=== PATIENT | female | born 1950 | race Caucasian/White ===

== ENCOUNTER 2016-08-31 23:25 | Emergency (ER) | payer BC ==
[2016-08-31 23:40] VITALS: BP 148/78
[2016-09-01] MEDS ORDERED: methylPREDNISolone Acetate 80 MG/ML SDV IARTIC ONE (00:12)
--- NOTE | 2016-09-01 00:32 | EDM.PDOC ---
ED HPI GENERAL MEDICAL PROBLEM - General Chief Complaint: Lower Extremity Injury/Pain Stated Complaint: PAIN AFTER KNEE INJECTION Time Seen by Provider: 08/31/16 23:50 Source of Information: Reports: Patient History Limitations: Reports: No Limitations - History of Present Illness INITIAL COMMENTS - FREE TEXT/NARRATIVE: 65 yo female had a Synvisc injection into her R knee earlier today. Has had this product without issue in the past. Now her R knee is swollen and tender. Has crutches at home. Onset: Today Onset Date: 08/31/16 Duration: Hour(s): Location: Reports: Lower Extremity, Right Quality: Reports: Pressure, Throbbing Severity: Moderate Improves with: Reports: Rest Worsens with: Reports: Movement Context: Reports: Other (Synvisc injection earlier in the day. 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, NSAIDS Right Posterior Knee Pain Score (Numeric/FACES): 10 - Related Data Allergies Allergy/AdvReac Type Severity Reaction Status Date / Time No Known Allergies Allergy Verified 09/01/16 00:12 Home Meds: Home Meds Acetaminophen/HYDROcodone [[place] 325-5 MG] 1 - 2 tab PO Q4H PRN #20 tab [Rx] Ondansetron [Zofran ODT] 4 mg PO Q6H PRN #7 tab.dis 09/01/16 [Rx] Review of Systems - Review of Systems Review Of Systems: See Below Constitutional: Reports: No Symptoms Musculoskeletal: Reports: Joint Pain (R knee), Joint Swelling Trauma Exam - Physical Exam Exam: See Below Exam Limited By: No Limitations General Appearance: Reports: Alert, WD/WN, No Apparent Distress Head: Reports: Atraumatic, Normocephalic Extremities: Joint Effusion ( R knee swollen. Warmer to touch than the opposite knee. Not red. ), Pain with Movement Neurologic: Reports: No Motor/Sensory Deficits, Alert, Normal Mood/Affect, Oriented x 3 Skin: Reports: Normal Color, Warm/Dry Course - Vital Signs Text/Narrative:: Prep'd the R knee with betadine x 3, wiped the area with alcohol. Anesth the skin with 2 ml of 1% lidocaine. Attempted to aspirate fluid unsuccessfully from the knee. Did inject 80 mg of depomedrol into the R knee. Last Recorded V/S: Last Vital Signs Temp 36.5 C 08/31/16 23:35 Pulse 72 08/31/16 23:35 Resp 18 08/31/16 23:35 BP 148/78 H 08/31/16 23:35 Pulse Ox 100 08/31/16 23:35 - Orders/Labs/Meds Meds: Medications Discontinued Medications Generic Name Dose Route Start Last Admin Trade Name Freq PRN Reason Stop Dose Admin Lidocaine HCl 5 ml 09/01/16 00:13 Xylocaine-Mpf 1% INJECT 09/01/16 00:14 ONETIME ONE Methylprednisolone Acetate 80 mg 09/01/16 00:12 Depo-Medrol IARTIC 09/01/16 00:13 ONETIME ONE Departure - Departure Time of Disposition: 00:43 Disposition: Home, Self-Care 01 Condition: good Clinical Impression: Allergic reaction caused by a drug Qualifiers: Encounter type: initial encounter Qualified Code(s): T78.40XA - Allergy, unspecified, initial encounter - Discharge Information Prescriptions: Acetaminophen/HYDROcodone [[place] 325-5 MG] 1 - 2 tab PO Q4H PRN #20 tab PRN Reason: Pain Ondansetron [Zofran ODT] 4 mg PO Q6H PRN #7 tab.dis PRN Reason: Nausea Referrals: PCP,None [Primary Care Provider] - Forms: ED Department Discharge Care Plan Goals: Crutch walking. Ibuprofen 400-600 mg every 6 hrs with food as needed for pain relief. Add [place] for additional relief as needed. Use Zofran for nausea as needed. Recheck with your provider next week. Consider Orthovisc or Euflexxa instead of Synvisc next time you need an injection.
[2016-09-01] MEDS ORDERED: Acetaminophen/HYDROcodone 325-5 MG Tab PO ONE (00:35)
[2016-09-01] MEDS ORDERED: Ondansetron 4 MG Tab.DIS PO ONE (00:35)
== END 2016-09-01 00:50 | disposition home or self-care (01) ==
LOC: FB.ED 23:25
DX: T78.40XA Allergy, unspecified, initial encounter (principal); Z79.899 Other long term (current) drug therapy
CPT/HCPCS: 99282; J1040; A9270-GY

== ENCOUNTER 2020-02-26 15:02 | Emergency (ER) | payer BC ==
[2020-02-26 15:17] VITALS: BP 158/85; PULSE 77
[2020-02-26] MEDS ORDERED: predniSONE 20 MG Tab ONE (15:35)
--- NOTE | 2020-02-26 15:36 | EDM.PDOC ---
ED HPI GENERAL MEDICAL PROBLEM - General Chief Complaint: Eye Problems Stated Complaint: RIGHT EYE RED Time Seen by Provider: 02/26/20 15:10 Source of Information: Reports: Patient History Limitations: Reports: No Limitations - History of Present Illness Onset: Gradual Onset Date: 02/25/20 Duration: Day(s): (2) Location: Reports: Face Quality: Reports: Ache, Burning Improves with: Reports: Cold Therapy Worsens with: Reports: Movement Context: Reports: Trauma right eye Pain Score (Numeric/FACES): 5 - Related Data Allergies Allergy/AdvReac Type Severity Reaction Status Date / Time No Known Allergies Allergy Verified 09/01/16 00:12 Home Meds: Home Meds Acetaminophen/HYDROcodone [[place] 325-5 MG] 1 - 2 tab PO Q4H PRN #20 tab 09/01/16 [Rx] Ondansetron [Zofran ODT] 4 mg PO Q6H PRN #7 tab.dis 09/01/16 [Rx] Ciprofloxacin [Ciloxan 0.3% Ophth Soln] 1 drop EYELF Q4H #1 bottle 02/26/20 [Rx] Ketorolac [Acular 0.5% Ophth Soln] 1 drop OP TID #1 bottle 02/26/20 [Rx] Past Medical History Musculoskeletal History: Reports: Other (See Below) Other Musculoskeletal History: bone spur in right knee - Past Surgical History Musculoskeletal Surgical History: Reports: None Social & Family History - Caffeine Use Caffeine Use: Reports: Coffee, Soda ED ROS GENERAL - Review of Systems Review Of Systems: Comprehensive ROS is negative, except as noted in HPI. ED EXAM GENERAL W FULL EYE - Physical Exam Exam: See Below Exam Limited By: No Limitations General Appearance: Alert, WD/WN, Mild Distress Eye Exam: Right Eye: Conjunctival Injection, Corneal Abrasion, Bilateral Eye: EOMI Eyelids: Bilateral: Normal Appearance Conjunctiva & Sclera: Right: Conjunctival Edema, Discharge, Injected, Bilateral: Normal Appearance Cornea Exam: Right: Corneal Abrasion (2mm in central), Examined with Flourescein (abrasion noted) Extraocular Movements: Bilateral: Intact Pupils: Normal Accommodation Pupillary Size: Bilateral: 3 mm Ears: Normal External Exam Nose: Normal Inspection Throat/Mouth: Normal Oropharynx Head: Atraumatic, Normocephalic Neck: Supple, Non-Tender Respiratory/Chest: Lungs Clear Cardiovascular: Regular Rate, Rhythm Neurological: Alert, Oriented, CN II-XII Intact Psychiatric: Normal Affect ED EYE w/ Add Procedure - Eye Procedure Progress: Pt had eye drops Tetracaine instilled Flurorescein instilled Corneal abrasion noted in central Course - Vital Signs Last Recorded V/S: Last Vital Signs Temp 36.7 C 02/26/20 15:02 Pulse 77 02/26/20 15:02 Resp 17 02/26/20 15:02 BP 158/85 H 02/26/20 15:02 Pulse Ox 99 02/26/20 15:02 - Orders/Labs/Meds Meds: Medications Discontinued Medications Generic Name Dose Route Start Last Admin Trade Name Freq PRN Reason Stop Dose Admin Prednisone 40 mg 02/27/20 15:35 Prednisone PO 02/27/20 15:36 ONETIME ONE Prednisone 40 mg 02/26/20 15:40 02/26/20 15:38 Prednisone PO 40 mg WITHBREAKFAST JOAN Administration Prednisone Confirm 02/26/20 15:35 02/26/20 21:14 Prednisone Administered 02/26/20 15:36 Not Given Dose 40 mg .ROUTE .STK-MED ONE Departure - Departure Time of Disposition: 16:00 Disposition: Home, Self-Care 01 Condition: Good Clinical Impression: Corneal abrasion, right, Conjunctivitis - Discharge Information *PRESCRIPTION DRUG MONITORING PROGRAM REVIEWED*: Not Applicable *COPY OF PRESCRIPTION DRUG MONITORING REPORT IN PATIENT CASI: Not Applicable Prescriptions: Ketorolac [Acular 0.5% Ophth Soln] 1 drop OP TID #1 bottle Ciprofloxacin [Ciloxan 0.3% Ophth Soln] 1 drop EYELF Q4H #1 bottle Instructions: Bacterial Conjunctivitis, Adult, [id number], Corneal Abrasion, [id number] Referrals: Dunia Spaulding [employer] [Primary Care Provider] - Forms: ED Department Discharge Additional Instructions: 1) Cold compress to the affected right eye 3 times a day for 15 mins each time 2) Monitor for any change in vision : if noted you will need to see an eyelet row marker 3) Make appointment to see your doctor for follow up in 3-4 days or earlier if symptoms get worse Sepsis Event Note (ED) - Evaluation Sepsis Screening Result: No Definite Risk
[2020-02-26] MEDS ORDERED: predniSONE 20 MG Tab PO SCH (15:40)
[2020-02-27] MEDS ORDERED: predniSONE 20 MG Tab PO ONE (15:35)
== END 2020-02-26 16:09 | disposition home or self-care (01) ==
LOC: FB.ED 15:02
DX: S05.01XA Injury of conjunctiva and corneal abrasion without foreign body, right eye, initial encounter (principal); H10.9 Unspecified conjunctivitis; X58.XXXA Exposure to other specified factors, initial encounter
CPT/HCPCS: 99283; J7512

== ENCOUNTER 2020-04-04 06:54 | Day surgery (SDC) | payer MEDICARE, BC ==
[~2020-04-04 06:54] MED LIST: Lactated Ringers 1,000 ML IV SCH; Sodium Chloride 0.9% 10 ML Syringe FLUSH PRN
[2020-04-04] MEDS ORDERED: Propofol 200 MG/20 ML SDV IV ONE (06:55)
[2020-04-04] MEDS ORDERED: Lidocaine 1% PF 2 ML SDV IV ONE (06:55)
--- NOTE | 2020-04-04 08:10 | PCM.PN ---
- General Info Date of Service: 04/04/20 Admission Dx/Problem (Free Text): Patient here for colonoscopy. She has a history of colon polyps. Her last colonoscopy was 3 years ago. She also has occasional diarrhea and had episode of diverticulitis about 3 months ago. States currently bowels working well. Denies family history of colon cancer - Review of Systems General: Reports: No Symptoms Pulmonary: Reports: No Symptoms Cardiovascular: Reports: No Symptoms Gastrointestinal: Reports: Other (Bowels working well). Denies: Abdominal Pain - Patient Data Vitals - Most Recent: Last Vital Signs Temp 97.7 F 04/04/20 07:13 Pulse 79 04/04/20 07:13 Resp 16 04/04/20 07:13 BP 147/81 H 04/04/20 07:13 Pulse Ox 97 04/04/20 07:13 Weight - Most Recent: 179 lb Med Orders - Current: Current Medications Lactated Ringer's (Ringers, Lactated) 1,000 mls @ 125 mls/hr IV ASDIRECTED JOAN Last Admin: 04/04/20 07:24 Dose: 125 mls/hr Documented by: Sodium Chloride (Saline Flush) 10 ml FLUSH ASDIRECTED PRN PRN Reason: Keep Vein Open - Exam General: Alert, Oriented Lungs: Clear to Auscultation Cardiovascular: Regular Rate, Regular Rhythm GI/Abdominal Exam: Soft, Non-Tender Sepsis Event Note - Focused Exam Vital Signs: Vital Signs Temp Pulse Resp BP Pulse Ox 04/04/20 07:13 97.7 F 79 16 147/81 H 97 - Problem List Review Problem List Initiated/Reviewed/Updated: Yes - My Orders Last 24 Hours: My Active Orders 04/04/20 Breakfast Nothing Per Oral Diet [DIET] 04/04/20 06:45 Patient Status [ADT] Routine Patient to Empty Bladder [RC] ASDIRECTED Verify Patient Consent Obtain [RC] ASDIRECTED Lactated Ringers [Ringers, Lactated] 1,000 ml IV ASDIRECTED Sodium Chloride 0.9% [Saline Flush] 10 ml FLUSH ASDIRECTED PRN Peripheral IV Insertion Adult [OM.PC] Routine - Assessment Assessment:: History of colon polyps - Plan Plan:: Colonoscopy
--- NOTE | 2020-04-04 08:45 | PCM.OPNOTE ---
- General Post-Op/Procedure Note Date of Surgery/Procedure: 04/04/20 Operative Procedure(s): Colonoscopy with Polypectomy Findings: Small polyps in Cecum and Ascending Colon Extensive Left Colon Diverticulosis with mild inflammatory change Pre Op Diagnosis: History of colon polyps Post-Op Diagnosis: Colon Polyps. Left Colon Diverticulosis Anesthesia Technique: MAC Primary Surgeon: Gilson Alston Pathology: Colon Polyps EBL in mLs: 2 Complications: None Condition: Good
--- NOTE | 2020-04-04 11:14 | OR ---
DATE OF OPERATION: 04/04/2020 SURGEON: Gilson Alston MD PREOPERATIVE DIAGNOSIS: History of colon polyps. POSTOPERATIVE DIAGNOSES: 1. Colon polyps. 2. Left colon diverticulosis. OPERATION PERFORMED: Colonoscopy with polypectomy. INDICATIONS FOR SURGERY: This 69-year-old female has a known history of colon polyps and comes today for surveillance colonoscopy. She also has a known history of diverticular disease with diverticulitis a few months ago. FINDINGS: Two polyps are noted on today's exam. They are located in the cecum and in the ascending colon. Each is sessile in configuration and 4 to 5 mm in size. The patient also has extensive diverticulosis throughout the left colon. There are some mild visible inflammatory changes, but no acute infection or other signs of complication. DESCRIPTION OF PROCEDURE: The patient was taken to the procedure room. She was given intravenous sedation, and with her in the left lateral decubitus position, digital rectal exam was performed showing no rectal masses. The Olympus colonoscope was inserted into the rectum and retroflexed examination of the rectal canal was performed. The scope was then carefully advanced under direct visualization through the entire length of the colon until the cecum was reached. Cecal acquisition was confirmed by noting normal internal cecal anatomy including the appendiceal orifice and the ileocecal valve. The light was also noted to transilluminate the abdominal wall in the right lower quadrant. The ileocecal valve was cannulated, and the terminal ileum was examined and appeared normal. The scope was then slowly withdrawn, sequentially re-examining the colonic segments. In the cecum and the ascending colon, the above-described polyps were identified, and these were each removed grossly in their entirety with cold biopsy forceps. After the examination had been completed, and with no sign of any bleeding or other complication, the scope was removed and the patient was taken from the procedure room in satisfactory condition. ESTIMATED BLOOD LOSS: 2 mL. COMPLICATIONS: None. PROGNOSIS: Good. /[id number] GERBER/INDERJIT AIKEN
[2020-04-04 11:31] VITALS: BP 131/73; PULSE 62
== END 2020-04-04 09:40 | disposition home or self-care (01) ==
LOC: FB.SDS 06:54
PROVIDERS: ATTEND Surgery
DX: Z12.11 Encounter for screening for malignant neoplasm of colon (principal); D12.0 Benign neoplasm of cecum; D12.2 Benign neoplasm of ascending colon; K57.30 Diverticulosis of large intestine without perforation or abscess without bleeding; Z79.899 Other long term (current) drug therapy
CPT/HCPCS: 00811; 45380; 88305; J2001; J2704; J7120

== ENCOUNTER 2021-07-13 15:19 | Emergency (ER) | payer MEDICARE, BC ==
[2021-07-13] MEDS ORDERED: Sulfamethoxazole/Trimethoprim 800-160 MG Tab PO ONE (15:20)
[2021-07-13 15:44] VITALS: BP 155/84; PULSE 85
[2021-07-13] MEDS: Sodium Chloride 0.9% 1,000 ML IV SCH (16:08)
[2021-07-13] MEDS: Sodium Chloride 0.9% 10 ML Syringe FLUSH PRN (16:09)
[2021-07-13] MEDS: Iopamidol 755 Mg/ML 100 ML Bottle IV ONE (16:58)
== END 2021-07-13 17:49 | disposition home or self-care (01) ==
LOC: FB.ED 15:19
DX: N39.0 Urinary tract infection, site not specified (principal); I10 Essential (primary) hypertension; E66.9 Obesity, unspecified; Z68.31 Body mass index [BMI] 31.0-31.9, adult
CPT/HCPCS: 36415; 74177; 80053; 81001; 82150; 83690; 85025; 87086; 99282; 99284-25; A9270-GY; J7030; Q9967